=== PATIENT | female | born 1980 | race African-American/Black ===

== ENCOUNTER 2021-12-05 10:38 | Outpatient (REF) | payer MEDICAID, SELFPAY ==
--- NOTE | ~2021-12-05 | US_ITS ---
EXAMINATION: US PELVIS CLINICAL INFORMATION: Dysmenorrhea COMPARISON: None TECHNIQUE: Ultrasound of the pelvis is performed using both transabdominal and transvaginal transducers along with Doppler. Transvaginal imaging is performed due to inadequate visualization transabdominally. FINDINGS: The uterus is anteverted and measures 9 x 4 x 5.7 cm in dimension. There is a 1.3 x 1 x 1.4 cm hypoechoic lesion in the anterior uterine body suggestive of a fibroid. No other focal uterine lesion is seen. Endometrial thickness measures 1 cm. There is a 0.6 x 0.8 x 0.9 cm hyperechoic round area in the anterior endometrium questionable for a polyp. There are multiple nabothian cysts seen in the cervix. Some appear complex with internal echoes. There is a small amount of fluid in the endocervical canal. The right ovary is normal-appearing and measures 2.8 x 1.2 x 1.1 cm. The left ovary measures 3.4 x 2.6 x 2.9 cm. There is a 2.2 x 2.3 x 2.3 cm simple left ovarian cyst. No imaging follow-up is indicated. There is a small amount of fluid in the pelvis. US/US pelvic and transvaginal IMPRESSION: Small anterior uterine body fibroid. 8 x 9 mm echogenic area in the anterior endometrium questionable for a polyp. Multiple nabothian cysts in the cervix. 2.2 x 2.3 cm simple left ovarian cyst.
== END 2021-12-05 10:39 | disposition home or self-care (01) ==
LOC: HO.HMGCX 10:38
PROVIDERS: Visit Provider Internal Medicine
DX: N93.8 Other specified abnormal uterine and vaginal bleeding (principal); N94.6 Dysmenorrhea, unspecified
CPT/HCPCS: 76830; 76856

== ENCOUNTER 2023-06-20 13:26 | Outpatient (REF) | payer MEDICAID, SELFPAY ==
[2023-06-21 15:43] LABS: H Pylori Breath Test Negative (Negative)
== END 2023-06-20 13:27 | disposition home or self-care (01) ==
LOC: HO.HHCLNP 13:26
PROVIDERS: Visit Provider Internal Medicine Geriatric Medicine
DX: K21.9 Gastro-esophageal reflux disease without esophagitis (principal)
CPT/HCPCS: 83013

== ENCOUNTER 2023-10-22 11:55 | Outpatient (REF) | payer MEDICAID, SELFPAY ==
[2023-10-22 13:55] LABS: Anion Gap 12 (12-20); Blood Urea Nitrogen 16 mg/dL (9-16); Calcium 8.9 mg/dL (8.4-10.2); Carbon Dioxide 24 mmol/L (22-29); Chloride 106 mmol/L (96-108); Estimated Glomerular Filt Rate > 60; Glucose Random 75 mg/dL (60-115); Potassium 4.1 mmol/L (3.3-5.1); Sodium 138 mmol/L (135-145)
[2023-10-22 14:16] LABS: TSH reflex Free T4 2.43 uIU/mL (0.32-4.0)
== END 2023-10-22 11:56 | disposition home or self-care (01) ==
LOC: HO.HHCL 11:55
PROVIDERS: Visit Provider Internal Medicine Geriatric Medicine
DX: R63.5 Abnormal weight gain (principal)
CPT/HCPCS: 36415; 80048; 84443

== ENCOUNTER 2024-12-10 09:43 | Outpatient (REF) | payer MEDICAID, SELFPAY ==
[2024-12-10 11:28] LABS: MANUAL DIFF FLAG NO
[2024-12-10 11:41] LABS: Basophils Percent Auto 0.5 % (0-2); Eosinophils Absolute Auto 0.1 X10*3/uL (0.0-0.4); Eosinophils Percent Auto 1.7 % (0-4); Hematocrit 37.3 % (37.0-47.0); Hemoglobin 11.9 g/dl (12.0-16.0); Imm Gran Abs Auto 0.03 X10*3/uL (0.00-0.03); Imm Gran Pct Auto 0.5 % (0.0-0.4); Lymphocytes Absolute Auto 1.5 X10*3/uL (1.2-4.9); Lymphocytes Percent Auto 25.7 % (20-40); Mean Corpuscular HGB Conc 31.9 g/dl (31.0-35.0); Mean Corpuscular Hemoglobin 26.8 pg (27.0-33.0); Mean Platelet Volume 10.5 fL (9.4-12.3); Monocytes Absolute Auto 0.4 X10*3/uL (0.1-1.2); Monocytes Percent Auto 7.1 % (2-11); Neutrophils Absolute Auto 3.7 x10*3/uL (2.0-8.3); Neutrophils Percent Auto 64.5 % (45-73); Platelet Count 225 X10*3/uL (160-400); Red Blood Count 4.44 X10*6/uL (4.20-5.50); White Blood Count 5.8 X10*3/uL (4.8-10.8)
[2024-12-10 11:49] LABS: Estimated Average Glucose 108 mg/dL; Hemoglobin A1C 109.7046 umol/L; Hemoglobin A1c % 5.4 % (<6.0); Total Hemoglobin (HGBA1C) 3125.8357 umol/L
[2024-12-10 12:16] LABS: Alanine Aminotransferase 91 U/L (0-31); Albumin Level 3.8 g/dL (3.5-5.0); Alkaline Phosphatase 141 U/L (39-117); Anion Gap 12 (12-20); Aspartate Amino Transferase 88 U/L (5-31); Bilirubin Total 0.3 mg/dL (0.0-1.0); Blood Urea Nitrogen 14 mg/dL (9-16); Carbon Dioxide 24 mmol/L (22-29); Chloride 107 mmol/L (96-108); Cholesterol 186 mg/dL (<200); Estimated Glomerular Filt Rate > 60; Glucose Random 89 mg/dL (60-115); HDL Cholesterol 50 mg/dL (>40); LDL Cholesterol Calculated 99 mg/dL (<100); Potassium 3.8 mmol/L (3.3-5.1); Sodium 139 mmol/L (135-145); TSH reflex Free T4 4.56 uIU/mL (0.32-4.0); Total Protein 7.5 g/dL (6.5-8.0); Triglycerides 185 mg/dL (<150)
[2024-12-10 12:48] LABS: Free T4 (Free Thyroxine) 0.88 ng/dL (0.71-1.85)
== END 2024-12-10 09:44 | disposition home or self-care (01) ==
LOC: HO.HHCL 09:43
PROVIDERS: Visit Provider Internal Medicine Geriatric Medicine
DX: E03.9 Hypothyroidism, unspecified (principal); R63.5 Abnormal weight gain
CPT/HCPCS: 36415; 80053; 80061; 83036; 84439; 84443; 85025

== ENCOUNTER 2025-01-28 10:57 | Outpatient (REF) | payer OTHER, SELFPAY ==
--- OUTSIDE RECORDS SUMMARY | 2025-01-28 12:30 | XMS_ITS | Clinical Summary ---
Author Organization [employer] Address [address] [place] [address] 7[address] [place] [address] Care Team Providers Care Hand Lacer Name Role Phone Name, Chang ORTEGA Primary Care Provider [phone] Allergies No known active allergies Medications ferrous sulfate 325 (65 Fe) MG tablet TAKE 1 TABLET BY MOUTH EVERY OTHER DAY 45 tablet 3 Active Diclofenac Sodium 1 % gelIndications:Medi al epicondylitis of right elbow Apply once a day to the affected elbow 100 g 2 4 Active levothyroxine (Synthroid, Levoxyl) 25 MCG tabletIndications:H ypothyroidism, unspecified type TAKE 1 TABLET BY MOUTH EVERY DAY 90 tablet 3 5 Active omeprazole (PriLOSEC) [address] capsule TAKE 1 CAPSULE BY MOUTH BEFORE BREAKFAST. 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 2 mL 5 02/27/20 Active Active Problems Problem Noted Date Diagnosed Date Iron deficiency anemia due to chronic blood loss 03/25/2023 S/P endometrial ablation 03/22/2023 Dry skin 10/03/2017 Prehypertension 10/03/2017 Seasonal allergic rhinitis 10/03/2017 Hypothyroidism 07/31/2017 Encounters Date Type Department Care Team Description 01/27/2025 Orders Only [facility] [address] [place] [address] NameChang MD Transaminitis (Primary Dx); Metabolic dysfunction-associated steatohepatitis (MASH); 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 mass index (BMI) of 38.0 to 38.9 in adult 12/24/[address] [address] Prosper Guaman [place] march recalls 12/10/2024 9:00 AM EDT Office Visit [address] [address] Name, MD Chang 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 mass index (BMI) of 38.0 to 38.9 in adult (Primary Dx); Hypothyroidism, unspecified type; Chronic pain of both knees; History of anemia 12/10/2024 Orders Only [address] [address] NameChang MD 12/10/2024 Travel from Last 3 Months Immunizations Name Administration Dates Next Due Moderna Covid-19 Vaccine 12+ 02/06/2021,01/10/20 21 Tdap 10/03/2017 Social History Tobacco Use Types Packs/Day Years Used Date Smoking Tobacco: Never Smokeless Tobacco: Never Tobacco Cessation:Counseling Given: Not Answered Alcohol Use Standard Drinks/Week Comments Never 0 (1 standard drink = 0.6 oz pur e alcohol) Depression Answer Date Recorded Patient Health Questionnaire-9 Score 3 12/10/2024 Patient Health Questionnaire-9 Score 3 12/10/2024 Last PHQ-9: Questionnaire Data Not on file 0 12/10/2024 Housing Stability Answer Date Recorded What is your housing situation today? I have jennifer lázaro 12/10/[address] you li ve. Do you have problems with any of the following? None of the above 12/10/2024 Food Insecurity Answer Date Recorded Within the past 12 months, y ou worried that your food would run out before you got money to buy more: Never True 12/10/2024 Within the past 12 months,th e food you bought just didn't last and you didn't have enough money to get more: Never True Transportation Answer Date Recorded In the past 12 months, has l ack of transportation kept you from medical appts, meetings, work or from getting things needed for daily living? No 12/10/2024 Utilities Answer Date Recorded In the past 12 months, has t he electric, gas, oil or water company threatened to shut off services in your home? No 12/10/2024 Depression Answer Date Recorded Patient Health Questionnaire-2 Score 0 12/10/2024 Internet Access Answer Date Recorded Internet Access Q1 Yes 12/10/2024 Internet Access Q2 Not on file 12/10/2024 Comments Unknown Sex and Gender Information Value Date Recorded Sex Assigned at Female 07/23/2022 10:32 AM EDT Legal Sex Female 10:32 AM EDT Gender Identity Female 07/23/2022 10:32 AM EDT Sexual Orientation Choose not to disclose 2021 10:32 AM EDT Last Filed Vital Signs Vital Sign Reading Time Taken Comments Blood Pressure 137/79 12/10/2024 9:24 AM EDT Pulse 76 12/10/2024 9:24 AM EDT Temperature 36.7 ??C (98 ??F) 12/10/2024 9:24 AM EDT Respiratory Rate 19 12/10/2024 9:24 AM EDT Oxygen Saturation 98% 12/10/2024 9:24 AM EDT Inhaled Oxygen Concentration - - Weight 85.8 kg (189 lb 3.2 oz) 12/10/2024 9:24 A M EDT Height 149.9 cm (4' 11 ) 12/10/2024 9:24 AM EDT Body Mass Index 38.21 12/10/2024 9:24 AM EDT Plan of Treatment Upcoming Encounters Date Type Department Care Team (Late st Contact Info) Description 04/13/2025 11:00 AM EDT Office Visit [facility] [address] [place] [phone] Name, MD Chang [address] [place] [address] Health Maintenance Due Date Last Done Comments CT Colonography 1978 Colonoscopy 1978 Colorectal Cancer Screening 1978 FIT DNA/Cologuard 1978 FIT 1978 FOBT 1978 HIV Screening 1978 Sigmoidoscopy 1978 Alcohol/Substance Use Screening 1990 Family Planning (PISQ) 1993 Hepatitis C Screening 1996 Hepatitis A Vaccines (1 of 2 - Risk 2-dose series) 1997 Hepatitis B Vaccines (1 of 3 - 19+ 3-dose series) 1997 Pap Smear 1999 Mammogram 2018 Cervical Cancer Screening 09/25/2022 HPV/Cotest 09/25/2022 09/25/2017 COVID-19 Vaccine (3 - 2023-2 5 season) 2024 02/06/2021, 01/09/2021 Influenza Vaccine (#1) 2024 Depression Screening 12/10/2025 12/10/2024, 12/10/2024 SDOH Screening 12/10/2025 12/10/2024 Tobacco Screening 12/10/2025 12/10/2024 DTaP/Tdap/Td Vaccines (2 - T d or Tdap) 10/03/2027 10/03/2017 Zoster Vaccines (1 of 2) 2028 Lipid Panel 12/10/2029 12/10/2024, 06/26/2022 RSV Patients and Patients Aged 60 years or older (1 - 1-dose 75+ series) 2053 HIB Vaccines Aged Out No longer eligi ble based on patient's age to complete this topic HPV Vaccines Aged Out No longer eligi ble based on patient's age to complete this topic IPV Vaccines Aged Out No longer eligi ble based on patient's age to complete this topic Meningococcal Vaccine Aged Out No jamie inna eligible based on patient's age to complete this topic Pneumococcal Vaccine: Pediatrics (0 to 5 Years) and At-Risk Patients (6 to 49) Years) Aged Out No longer eligible b ased on patient's age to complete this topic RSV under 20 months Aged Out No longe r eligible based on patient's age to complete this topic Rotavirus Vaccines Aged Out No longer eligible based on patient's age to complete this topic Procedures Procedure Name Priority Date/Time Associated Diagnosis Comments T4, FREE Routine 12/10/2024 9:50 AM EDT HEMOGLOBIN A1C Routine 12/10/2024 9:50 AM EDT 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 mass index (BMI) of 38.0 to 38.9 in adult LIPID PANEL, STANDARD Routine 12/10/2024 9:50 AM EDT 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 mass index (BMI) of 38.0 to 38.9 in adult TSH W/REFLEX TO FT4 Routine 12/10/2024 9 :50 AM EDT Hypothyroidism, unspecified type COMPREHENSIVE METABOLIC PANEL Routine 12/10/2024 9:50 AM EDT 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 mass index (BMI) of 38.0 to 38.9 in adult CBC WITH AUTO DIFFERENTIAL Routine 12/10/2024 9:50 AM EDT 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 mass index (BMI) of 38.0 to 38.9 in adult ZZZ HISTORICAL HPV MRNA E6/E7 Routine 09/25/2017 10:06 AM EST from Last 3 Months or Most Recently Relevant to Health Maintenance Results * (ABNORMAL) TSH W/Reflex to FT4 (12/10/2024 9:50 AM EDT) TSH reflex Free T4 4.56(H) 0.32 - 4.0 uIU/mL [facility] Blood Venous blood specimen / Unknown 12/10/2024 9:50 AM EDT 12/10/2024 11:21 AM EDT us Chang Lucero MD LAB BLOOD ORDERABLES Final Resul t [facility] [address] [place] [phone] * (ABNORMAL) CBC auto differential (12/10/2024 9:50 AM EDT) White Blood Count 5.8 4.8 - 10.8 X10*3/uL [facility] Red Blood Count 4.44 4.20 - 5.50 X10*6/uL [facility] Hemoglobin 11.9(L) 12.0 - 16.0 g/dl [facility] Hematocrit 37.3 37.0 - 47.0 % [facility] Mean Corpuscular Volume 84.0 80.0 - 98.0 fL [facility] Mean Corpuscular Hemoglobin 26.8(L) 27.0 - 33.0 pg [facility] Mean Corpuscular HGB Conc 31.9 31.0 - 35.0 g/dl [facility] Red Cell Distribution Width 15.0 11.0 - 16.0 % [facility] Platelet Count 225 160 - 400 X10*3/uL [facility] Mean Platelet Volume 10.5 9.4 - 12.3 fL [facility] Neutrophils Percent Auto 64.5 45 - 73 % [facility] Imm Gran Pct Auto 0.5(H) 0.0 - 0.4 % [facility] Lymphocytes Percent Auto 25.7 20 - 40 % [facility] Monocytes Percent Auto 7.1 2 - 11 % [facility] Eosinophils Percent Auto 1.7 0 - 4 % [facility] Basophils Percent Auto 0.5 0 - 2 % [facility] NRBC Pct Auto 0.0 0.0 - 0.2 /100WBC [facility] Neutrophils Absolute Auto 3.7 2.0 - 8.3 x10*3/uL [facility] Imm Gran Abs Auto 0.03 0.00 - 0.03 X10*3/uL [facility] Lymphocytes Absolute Auto 1.5 1.2 - 4.9 X10*3/uL [facility] Monocytes Absolute Auto 0.4 0.1 - 1.2 X10*3/uL [facility] Eosinophils Absolute Auto 0.1 0.0 - 0.4 X10*3/uL [facility] Basophils Absolute Auto 0.0 0.0 - 0.2 X10*3/uL [facility] NRBC Abs Auto 0.000 0.0 - 0.012 X10*3/uL [facility] Blood Venous blood specimen / Unknown 12/10/2024 9:50 AM EDT 12/10/2024 11:21 AM EDT us Chang Lucero MD LAB BLOOD ORDERABLES Final Resul t Performing Organization Address City/[facility] Co de Phone Number [facility] [address] [place] [phone] * T4, Free (12/10/2024 9:50 AM EDT) Free T4 (Free Thyroxine) 0.88 0.71 - 1.85 ng/dL [facility] 12/10/2024 9:50 AM EDT 12/10/2024 11:21 AM EDT us Chang Lucero MD LAB BLOOD ORDERABLES Final Resul t Performing Organization Address [facility] de Phone Number [facility] [address] [place] [phone] * Hemoglobin A1c (12/10/2024 9:50 AM EDT) Hemoglobin A1c 5.4 <6.0 % [facility] Comment:Hemoglobin A1C Refer ence Range Adults: 4.8 - 6.0 % Non diabetic: < 6.0 % Goal: < 7.0 %Additional Action Suggested: > 8.0 %Note: Hemoglobin A1c results are invalid for patients with abnormal amounts of HbF. Blood transfusions may impact the HbA1c concentration in the patient sample. Estimated Average Glucose 108 mg/dL [facility] Comment:eAG = Estimated ave rage glucose which is %A1C expressed asaverage glucose, using the formula of the [id number] Glucose study (ADAG), Diabetes Care, Vol.31,#8,2007 Blood Venous blood specimen / Unknown 12/10/2024 9:50 AM EDT 12/10/2024 11:21 AM EDT us Chang Lucero MD LAB BLOOD ORDERABLES Final Resul t Performing Organization Address [facility] Co de Phone Number [facility] [address] [place] [phone] * (ABNORMAL) Lipid Panel, Standard (12/10/2024 9:50 AM EDT) Triglycerides 185(H) <150 mg/dL [facility] Comment:Desirable Triglyceri de: less than 150 mg/dLBorderline High Triglyceride 150-199 mg/dLHigh Triglyceride: 200-499 mg/dLVery High Triglyceride: greater than or equal to 5OO mg/dL Cholesterol 186 <200 mg/dL [facility] Comment:Desirable Cholestero l: less than 200 mg/dLBorderline High Cholesterol: 200-239 mg/dLHigh Cholesterol: greater than 239 mg/dL LDL Cholesterol Calculated 99 <100 mg/dL [facility] Comment:Desirable LDL: less than 100 mg/dLNear Optimal/Above Optimal LDL: 110- 129 mg/dLBorderline High LDL: 130-159 mg/dLHigh LDL: 160-189 mg/dLVery High LDL: greater than or equal to 190 mg/dL HDL Cholesterol 50 >40 mg/dL [facility] Comment:Desirable HDL: great er than 40 mg/dL Note: This HDL assay may give artificially low results in patients with liver disease. Blood Venous blood specimen / Unknown 12/10/2024 9:50 AM EDT 12/10/2024 11:21 AM EDT us Chang Lucero MD LAB BLOOD ORDERABLES Final Resul t Performing Organization Address [facility]/ZIP Co de Phone Number [facility] [address] [place] [phone] * (ABNORMAL) Comprehensive Metabolic Panel (12/10/2024 9:50 AM EDT) Sodium 139 135 - 145 mmol/L [facility] Potassium 3.8 3.3 - 5.1 mmol/L [facility] Chloride 107 96 - 108 mmol/L [facility] Carbon Dioxide 24 22 - 29 mmol/L [facility] Anion Gap 12 12 - 20 [facility] Urea Nitrogen (BUN) 14 9 - 16 mg/dL [facility] Creatinine, Serum 0.64 0.5 - 1.4 mg/dL [facility] Estimated Glomerular Filt Rate >60 [facility] Comment:Chronic Kidney Disea se: Estimated GFR < 60 mL/min/1.44f0Hrtoam Kidney Disease: Estimated GFR < 15 mL/min/1.73m2 Glucose 89 60 - 115 mg/dL [facility] Calcium 9.0 8.4 - 10.2 mg/dL [facility] Bilirubin, Total 0.3 0.0 - 1.0 mg/dL [facility] Aspartate Amino Transferase 88(H) 5 - 31 U/L [facility] Alanine Aminotransferase 91(H) 0 - 31 U/L [facility] Total Protein 7.5 6.5 - 8.0 g/dL [facility] Albumin Level 3.8 3.5 - 5.0 g/dL [facility] Alkaline Phosphatase 141(H) 39 - 117 U/L [facility] Blood Venous blood specimen / Unknown 12/10/2024 9:50 AM EDT 12/10/2024 11:21 AM EDT us Chang Name LAB BLOOD ORDERABLES Final Resul t [facility] [address] [place] [phone] * HPV mRNA E6/E7 (09/25/2017 10:06 AM EST) HPV mRNA E6/E7 Not Detected NOT DETECTED [facility] Comment: This test was performed using the APTIMA(R) HPV Assay ([employer] This assay detects E6/E7 viral messenger RNA (mRNA) from 14 high-risk HPV types (16,18,31,33,35,39,45,51, 52,56,58,59,66,68). For additional information please refer to: http://education.[employer] [place]/faq/SHK494c2 (This link is being provided for informational/ educational purposes only.) Test Performed by [employer] [facility], [address] [place] [phone] Papo Coburn M.D., Ph.D., Director of Laboratories , [facility] [id number] Please note: ??Effective 06/04/2016, HPV testing will be performed using [employer]'s APTIMA test which targets mRNA. Detecting mRNA instead of DNA, as in older methods, offers significant improvements in specificity. 09/25/2017 10:0 6 AM EST us Nadia Cordon CNM HISTORICAL/NON ORDERABLE LABS Final Result [facility] Anywhere [address] from Last 3 Months or Most Recently Relevant to Health Maintenance Insurance [facility] Care Teams Hand Lacer Relationship Specialty Start Date End Date Name, MD Chang [address] [place] [phone] PCP - General Internal Medicine 01/10/23
--- OUTSIDE RECORDS SUMMARY | 2025-01-28 12:30 | XMS_ITS | Encounter Summary ---
Author Organization [employer] Address [address] [place] [address] 7 [place] [address] Care Team Providers Care Sales Correspondence Clerk Name Role Phone Chang Lucero MD Primary Care Provider [phone] Reason for Referral * Medications - Closed Specialty Diagnoses / Procedures Referred By Citlaly t Referred To Contact Diagnoses Metabolic dysfunction-associated steatohepatitis (MASH) 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 mass index (BMI) of 38.0 to 38.9 in adult Chang Lucero MD [address] [place] [address] Phone: tel: fax: Referral ID Status Reason Start Date Expiration Date Visits Re quested Visits Authorized [id number] Closed 01/27/2025 01/27/2026 1 1 * Imaging (Routine) - Authorized Specialty Diagnoses / Procedures Referred By Contac t Referred To Contact Radiology Diagnoses Transaminitis Metabolic dysfunction-associated steatohepatitis (MASH) Procedures US ABDOMEN VAUGHN W ELASTOGRAPHY Chang Lucero MD [address] [place] [address] Phone: tel: fax: [address] Phone: tel: fax: Referral ID Status Reason Start Date Expiration Date V isits Requested Visits Authorized [id number] Authorized 01/27/2025 01/27/2026 1 1 Encounter Details Date Type Department Care Team (Late st Contact Info) Description 01/27/2025 Orders Only [facility] [address] [facility] [place] [address] Name, MD Chang [address] [place] [address] Transaminitis (Primary Dx); Metabolic dysfunction-associated steatohepatitis (MASH); 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 mass index (BMI) of 38.0 to 38.9 in adult Social History Tobacco Use Types Packs/Day Years Used Date Smoking Tobacco: Never Smokeless Tobacco: Never Alcohol Use Standard Drinks/Week Comments Never 0 (1 standard drink = 0.6 oz pur e alcohol) Depression Answer Date Recorded Patient Health Questionnaire-9 Score 3 12/10/2024 Patient Health Questionnaire-9 Score 3 12/10/2024 Last PHQ-9: Questionnaire Data Not on file 0 12/10/2024 Housing Stability Answer Date Recorded What is your housing situation today? I have jennifer sesay 12/10/[address] you li [...] not to disclose 2021 10:32 AM EDT documented as of this encounter Progress Notes * Chang Lucero MD - 01/27/2025 9:34 AM EDT I called the patient to discuss the results. She has mild transaminitis She is not a big drinker of alcohol. I suspect metabolic associated steatohepatitis. I recommended evaluation with viral hepatitis testing Ultrasound of the liver I will prescribe GLP-1 for weight loss and start the process of prior authorization documented in this encounter Plan of Treatment Upcoming Encounters Date Type Department Care Team (Late st Contact Info) Description 04/13/2025 11:00 AM EDT Office Visit [facility] [address] [place] [phone] Name, MD Chang [address] [place] [address] Scheduled Orders Name Type Priority Associated Diagnoses Orde r Schedule Hepatitis C Antibody with Reflex to HCV, RNA, Quantitative, Real-Time PCR Lab Routine Transaminitis Metabolic dysfunction-associated steatohepatitis (MASH) Expected: 01/27/2025, Expires: 01/27/2026 Hepatitis B surface antigen, EIA Lab Routine Transaminitis Metabolic dysfunction-associated steatohepatitis (MASH) Expected: 01/27/2025 (Approximate), Expires: 01/27/2026 Hepatitis B Surface Antibody, Qualitative Lab Routine Transaminitis Metabolic dysfunction-associated steatohepatitis (MASH) Expected: 01/27/2025 (Approximate), Expires: 01/27/2026 US ABDOMEN VAUGHN W ELASTOGRAPHY Imaging Routine Transaminitis Metabolic dysfunction-associated steatohepatitis (MASH) Expected: 01/27/2025, Expires: 01/27/2026 documented as of this encounter Visit Diagnoses Diagnosis Transaminitis- Primary Nonspecific elevation of levels of transaminase or lactic acid dehydrogenase (LDH) Metabolic dysfunction-associated steatohepatitis (MASH) 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 mass index (BMI) of 38.0 to 38.9 in adult documented in this encounter Additional Health Concerns Assessment Noted Time PHQ-9 Depression Total Score: 3 12/11/19 25 9:49 AM EDT documented as of this encounter Care Teams Sales Correspondence Clerk Relationship Specialty Start Date End Date Name, MD Chang [address] [place] [address] PCP - General Internal Medicine 01/10/23 documented as of this encounter
[2025-01-28 13:54] LABS: HBS Num1 0.14 mIU/mL (0-7.99); HBsAGNum1 0.34 S/CO (0.00-0.99); Hepatitis B Surface Antigen Negative (Negative); ~Hepatitis B Surface Antibody NONREACTIVE (Nonreactive); ~Hepatitis C Antibody Nonreactive (Nonreactive)
== END 2025-01-28 10:58 | disposition home or self-care (01) ==
LOC: HO.HHCL 10:57
PROVIDERS: Visit Provider Internal Medicine Geriatric Medicine
DX: K75.81 Nonalcoholic steatohepatitis (NASH) (principal); R74.01 Elevation of levels of liver transaminase levels
CPT/HCPCS: 36415; 86706; 86803; 87340

== ENCOUNTER 2025-03-10 10:08 | Outpatient (REF) | payer OTHER, SELFPAY ==
--- NOTE | ~2025-03-10 | US_ITS ---
EXAMINATION: US ABDOMEN LIMITED WITH LIVER ELASTOGRAPHY CLINICAL INFORMATION: Transaminitis, obesity COMPARISON: None available. TECHNIQUE: Real-time imaging of the abdominal viscera. Noninvasive ultrasound liver fibrosis assessment is performed using Long ElastPQ point quantification shear wave elastography (pSWE) with a 5 MHz transducer. Multiple elastography samples are obtained. FINDINGS: PANCREAS: The visualized pancreatic head and body are normal in appearance. The remainder of the pancreas is obscured from visualization by the overlying bowel gas. LIVER: The liver is hyperechogenic with a coarse echotexture. No intrahepatic biliary ductal dilation is evident. The right lobe measures 18 cm in length. The left lobe measures 12 cm in length. The main portal vein is patent with a normal direction of flow. Shear wave elastography provides a median stiffness of 0.9 m/s (reference: normal median stiffness is 0.81 - 1.22 m/s). The IQR/median stiffness to assess sampling precision is 0.28 (reference: optimal IQR/median stiffness is under 0.3). GALLBLADDER: Surgically absent COMMON BILE DUCT: Normal in caliber measuring 0.5 cm in diameter. RIGHT KIDNEY: No hydronephrosis. No renal calculi or focal parenchymal lesions. The kidney measures 10.1 cm in maximum dimension. FREE FLUID: None seen. US/US abdomen priest w elastography IMPRESSION: 1. Echogenic liver suggestive fatty changes.: 2. Elastography: High probability of normal. Sampling was adequate. Electronically signed by: Sathish Francis MD 03/10/2025 11:06 AM EDT
--- OUTSIDE RECORDS SUMMARY | 2025-03-10 11:23 | XMS_ITS | Clinical Summary ---
Author Organization [employer] Address [address] [place] [address] 7 [place] [address] Care Team Providers Care Bight Maker Name Role Phone Name, Chang ORTEGA Primary Care Provider [phone] Allergies No known active allergies Medications ferrous [...] (one) time per week. 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 I have jenniferrambo sesay 12/10/[address] you [...] 76 12/10/2024 9:24 AM EDT Temperature 36.7 C (98 F) 12/10/2024 9:24 AM EDT Respiratory Rate 19 [...] Description 04/13/2025 11:00 AM EDT Office Visit [facility] [address] [place] [address] Name, MD Chang [address] [place] [address] Health Maintenance Due Date Last Done Comments CT Colonography 1978 Colonoscopy 1978 Colorectal Cancer Screening 1978 FIT DNA/Cologuard 1978 FIT 1978 FOBT 1978 HIV Screening 1978 Sigmoidoscopy 1978 Alcohol/Substance Use Screening 1990 Family Planning (PISQ) 1993 Hepatitis A Vaccines (1 of 2 - Risk 2-dose series) 1997 Hepatitis B Vaccines (1 of 3 - 19+ 3-dose series) 1997 Pap Smear 1999 Mammogram 2018 Cervical Cancer Screening 09/25/2022 HPV/Cotest 09/25/2022 09/25/2017 COVID-19 Vaccine (3 - 2023-2 5 season) 2024 02/06/2021, 01/09/2021 Influenza Vaccine (Season Ended) 2025 Depression Screening 12/10/2025 12/10/2024, 12/10/2024 Disability Screening 12/10/2025 12/10/2024 SDOH Screening 12/10/2025 12/10/2024 Tobacco Screening 12/10/2025 12/10/2024 DTaP/Tdap/Td Vaccines (2 - T d or Tdap) 10/03/2027 10/03/2017 Zoster Vaccines (1 of 2) 2028 Lipid Panel 12/10/2029 12/10/2024, 06/26/2022 RSV Patients and Patients Aged 60 years or older (1 - 1-dose 75+ series) 2053 Hepatitis C Screening Completed 01/28/2025 HIB Vaccines Aged Out No longer eligi ble based on patient's age to complete this topic HPV Vaccines Aged Out No longer eligi ble based on patient's age to complete this topic IPV Vaccines Aged Out No longer eligi ble based on patient's age to complete this topic Meningococcal B Vaccine Aged Out No l onger eligible based on patient's age to complete this topic Meningococcal Vaccine Aged Out No jamie inna eligible based on patient's age to complete this topic Pneumococcal Vaccine: Pediatrics (0 to 5 Years) and At-Risk Patients (6 to 49) Years Aged Out No longer eligible b ased on patient's age to complete this topic RSV under 20 months Aged Out No longe r eligible based on patient's age to complete this topic Rotavirus Vaccines Aged Out No longer eligible based on patient's age to complete this topic Procedures Procedure Name Priority Date/Time Associated Diagnosis Comments US ABDOMEN VAUGHN W ELASTOGRAPHY Routine 03/10/2025 10:17 AM EDT Transaminitis Metabolic dysfunction-associated steatohepatitis (MASH) HEPATITIS B SURFACE ANTIBODY, QUALITATIVE Routine 01/28/2025 10:59 AM EDT Transaminitis Metabolic dysfunction-associated steatohepatitis (MASH) HEPATITIS B SURFACE ANTIGEN, EIA Routine 01/28/2025 10:59 AM EDT Transaminitis Metabolic dysfunction-associated steatohepatitis (MASH) HEPATITIS C AB W/REFL TO HCV RNA, QN, PCR Routine 01/28/2025 10:59 AM EDT Transaminitis Metabolic dysfunction-associated steatohepatitis (MASH) T4, FREE Routine 12/10/2024 9:50 AM EDT [...] Recently Relevant to Health Maintenance Results * US ABDOMEN VAUGHN W ELASTOGRAPHY (03/10/2025 10:17 AM EDT) Anatomical Region Laterality Modality Abdomen Ultrasound 03/10/2025 10:1 7 AM EDT Narrative 03/10/2025 11:09 AM EDT [place] [address] Ultrasound Report Signed Patient: Karthik Ray#: [id number] : 1980 Acct:[id number] Age/Sex: 44 / F ADM Date: 03/10/25 Loc: HO.US Attending Dr: Chang Lucero MD Ordering Physician: Chang Lucero MD Date of Service: 03/10/25 Procedure(s): US abdomen vaughn w elastography Accession Number(s): [id number] cc: Chang Lucero MD; Macy Weston MD EXAMINATION: US ABDOMEN LIMITED WITH LIVER ELASTOGRAPHY CLINICAL INFORMATION: Transaminitis, obesity COMPARISON: None available. TECHNIQUE: Real-time imaging of the abdominal viscera. Noninvasive ultrasound liver fibrosis assessment is performed using Long ElastPQ point quantification shear wave elastography (pSWE) with a 5 MHz transducer. Multiple elastography samples are obtained. FINDINGS: PANCREAS: The visualized pancreatic head and body are normal in appearance. The remainder of the pancreas is obscured from visualization by the overlying bowel gas. LIVER: The liver is hyperechogenic with a coarse echotexture. No intrahepatic biliary ductal dilation is evident. The right lobe measures 18 cm in length. The left lobe measures 12 cm in length. The main portal vein is patent with a normal direction of flow. Shear wave elastography provides a median stiffness of 0.9 m/s (reference: normal median stiffness is 0.81 - 1.22 m/s). The IQR/median stiffness to assess sampling precision is 0.28 (reference: optimal IQR/median stiffness is under 0.3). GALLBLADDER: Surgically absent COMMON BILE DUCT: Normal in caliber measuring 0.5 cm in diameter. RIGHT KIDNEY: No hydronephrosis. No renal calculi or focal parenchymal lesions. The kidney measures 10.1 cm in maximum dimension. FREE FLUID: None seen. US/US abdomen vaughn w elastography IMPRESSION: 1. Echogenic liver suggestive fatty changes.: 2. Elastography: High probability of normal. Sampling was adequate. Electronically signed by: Sathish Francis MD 03/10/2025 11:06 AM EDT RP Dictated By: Sathish Francis MD Signed By: <Electronically signed by Sathish Francis MD in OV> 03/10/25 1106 DD/ 1017 TD/TT: 03/10/25 1038 Boat Canvas Maker And Installer: Procedure Note Donotuseinterpreter, Image - 03/10/[address] [address] Ultrasound Report Signed Patient: Arti Ray R#: [id number] : 1980Acct:[id number] Age/Sex: 44 / FADM Date: 03/10/25 Loc: HO.US Attending Dr: Chang Lucero MD Ordering Physician: Chang Lucero MD Date of Service: 03/10/25 Procedure(s): US abdomen vaughn w elastography Accession Number(s): [id number] cc: Chang Lucero MD; Macy Weston MD EXAMINATION: US ABDOMEN LIMITED WITH LIVER ELASTOGRAPHY CLINICAL INFORMATION: Transaminitis, obesity COMPARISON: None available. TECHNIQUE: Real-time imaging of the abdominal viscera. Noninvasive ultrasound liver fibrosis assessment is performed using Long ElastPQ point quantification shear wave elastography (pSWE) with a 5 MHz transducer. Multiple elastography samples are obtained. FINDINGS: PANCREAS: The visualized pancreatic head and body are normal in appearance. The remainder of the pancreas is obscured from visualization by the overlying bowel gas. LIVER: The liver is hyperechogenic with a coarse echotexture. No intrahepatic biliary ductal dilation is evident. The right lobe measures 18 cm in length. The left lobe measures 12 cm in length. The main portal vein is patent with a normal direction of flow. Shear wave elastography provides a median stiffness of 0.9 m/s (reference: normal median stiffness is 0.81 - 1.22 m/s). The IQR/median stiffness to assess sampling precision is 0.28 (reference: optimal IQR/median stiffness is under 0.3). GALLBLADDER: Surgically absent COMMON BILE DUCT: Normal in caliber measuring 0.5 cm in diameter. RIGHT KIDNEY: No hydronephrosis. No renal calculi or focal parenchymal lesions. The kidney measures 10.1 cm in maximum dimension. FREE FLUID: None seen. US/US abdomen vaughn w elastography IMPRESSION: 1. Echogenic liver suggestive fatty changes.: 2. Elastography: High probability of normal. Sampling was adequate. Electronically signed by: Sathish Francis MD 03/10/2025 11:06 AM EDT RP Dictated By: Sathish Francis MD Signed By: <Electronically signed by Sathish Francis MD in OV> 03/10/25 1106 DD/ 1017 TD/TT: 03/10/25 1038 Boat Canvas Maker And Installer: us Chang Lucero MD IMG US PROCEDURES Edited Result - Final * Hepatitis C Antibody with Reflex to HCV, RNA, Quantitative, Real-Time PCR (01/28/2025 10:59 AM EDT) Hepatitis C Antibody Nonreactive Nonreactive [facility] Comment:Antibodies to HCV no t detected; does not exclude early acuteHCV infection. Blood Venous blood specimen / Unknown 01/28/2025 10:59 AM EDT 01/28/2025 12:58 PM EDT us Chang Lucero MD LAB BLOOD ORDERABLES Final Resul t [facility] [address] [place] [phone] * Hepatitis B surface antigen, EIA (01/28/2025 10:59 AM EDT) Hepatitis B Surface Ag Negative Negative [facility] Blood Venous blood specimen / Unknown 01/28/2025 10:59 AM EDT 01/28/2025 12:58 PM EDT us Chang Lucero MD LAB BLOOD ORDERABLES Final Resul t Performing Organization Address [facility] de Phone Number [facility] [address] [place] [phone] * Hepatitis B Surface Antibody, Qualitative (01/28/2025 10:59 AM EDT) ~Hepatitis B Surface Antibody NONREACTIVE Nonreactive [facility] Comment:Nonreactive: < 8.00 mIU/mL Blood Venous blood specimen / Unknown 01/28/2025 10:59 AM EDT 01/28/2025 12:58 PM EDT us Chang Lucero MD LAB BLOOD ORDERABLES Final Resul t Performing Organization Address [facility] de Phone Number [facility] [address] [place] [phone] * (ABNORMAL) TSH W/Reflex to FT4 (12/10/2024 9:50 AM EDT) Pathologist [facility] TSH reflex Free T4 4.56(H) 0.32 - 4.0 uIU/mL [facility] Blood Venous blood specimen / Unknown 12/10/2024 9:50 AM EDT 12/10/2024 11:21 AM EDT us Chang Lucero MD LAB BLOOD ORDERABLES Final Resul t Performing Organization Address [facility] Co de Phone Number [facility] [address] [place] [phone] * (ABNORMAL) CBC auto differential (12/10/2024 9:50 AM EDT) White Blood Count 5.8 4.8 - 10.8 X10*3/uL [facility] Red Blood Count 4.44 4.20 - 5.50 X10*6/uL [facility] Hemoglobin 11.9(L) 12.0 - 16.0 g/dl [facility] Hematocrit 37.3 37.0 - 47.0 % [facility] Mean Corpuscular Volume 84.0 80.0 - 98.0 fL [facility] Mean Corpuscular Hemoglobin 26.8(L) 27.0 - 33.0 pg [facility] Mean Corpuscular HGB Conc 31.9 31.0 - 35.0 g/dl [facility] Red Cell Distribution Width 15.0 11.0 - 16.0 % [facility] Platelet Count 225 160 - 400 X10*3/uL [facility] Mean Platelet Volume 10.5 9.4 - 12.3 fL [facility] Neutrophils Percent Auto 64.5 45 - 73 % [facility] Imm Gran Pct Auto 0.5(H) 0.0 - 0.4 % [facility] Lymphocytes Percent Auto 25.7 20 - 40 % [facility] Monocytes Percent Auto 7.1 2 - 11 % [facility] Eosinophils Percent Auto 1.7 0 - 4 % [facility] Basophils Percent Auto 0.5 0 - 2 % [facility] NRBC Pct Auto 0.0 0.0 - 0.2 /100WBC [facility] Neutrophils Absolute Auto 3.7 2.0 - 8.3 x10*3/uL [facility] Imm Gran Abs Auto 0.03 0.00 - 0.03 X10*3/uL [facility] Lymphocytes Absolute Auto 1.5 1.2 - 4.9 X10*3/uL [facility] Monocytes Absolute Auto 0.4 0.1 - 1.2 X10*3/uL [facility] Eosinophils Absolute Auto 0.1 0.0 - 0.4 X10*3/uL [facility] Basophils Absolute Auto 0.0 0.0 - 0.2 X10*3/uL [facility] NRBC Abs Auto 0.000 0.0 - 0.012 X10*3/uL [facility] Blood Venous blood specimen / Unknown 12/10/2024 9:50 AM EDT 12/10/2024 11:21 AM EDT us Chang Lucero MD LAB BLOOD ORDERABLES Final Resul t Performing Organization Address [facility] Co de Phone Number [facility] [address] [place] [phone] * T4, Free (12/10/2024 9:50 AM EDT) Free T4 (Free Thyroxine) 0.88 0.71 - 1.85 ng/dL [facility] 12/10/2024 9:50 AM EDT 12/10/2024 11:21 AM EDT us Chang Lucero MD LAB BLOOD ORDERABLES Final Resul t Performing Organization Address [facility] Phone Number [facility] [address] [place] [phone] * Hemoglobin A1c (12/10/2024 9:50 AM EDT) Hemoglobin A1c 5.4 <6.0 % [facility] Comment:Hemoglobin A1C Refer ence Range Adults: 4.8 - 6.0 % Non diabetic: < 6.0 % Goal: < 7.0 %Additional Action Suggested: > 8.0 %Note: Hemoglobin A1c results are invalid for patients with abnormal amounts of HbF. Blood transfusions may impact the HbA1c concentration in the patient sample. Estimated Average Glucose 108 mg/dL [facility] Comment:eAG = Estimated ave rage glucose which is %A1C expressed asaverage glucose, using the formula of the U1B-JnlwnhtJagssex Glucose study (ADAG), Diabetes Care, Vol.31,#8,Apr. 2007 Blood Venous blood specimen / Unknown 12/10/2024 9:50 AM EDT 12/10/2024 11:21 AM EDT us Chang Lucero MD LAB BLOOD ORDERABLES Final Resul t Performing Organization Address [facility] de Phone Number [facility] [address] [place] [phone] * (ABNORMAL) Lipid Panel, Standard (12/10/2024 9:50 AM EDT) Triglycerides 185(H) <150 mg/dL [facility] Comment:Desirable Triglyceri de: less than 150 mg/dLBorderline High Triglyceride 150-199 mg/dLHigh Triglyceride: 200-499 mg/dLVery High Triglyceride: greater than or equal to 5OO mg/dL Cholesterol 186 <200 mg/dL [facility] Comment:Desirable Cholestero l: less than 200 mg/dLBorderline High Cholesterol: 200-239 mg/dLHigh Cholesterol: greater than 239 mg/dL LDL Cholesterol Calculated 99 <100 mg/dL [facility] Comment:Desirable LDL: less than 100 mg/dLNear Optimal/Above Optimal LDL: 110- 129 mg/dLBorderline High LDL: 130-159 mg/dLHigh LDL: 160-189 mg/dLVery High LDL: greater than or equal to 190 mg/dL HDL Cholesterol 50 >40 mg/dL [facility] Comment:Desirable HDL: great er than 40 mg/dL Note: This HDL assay may give artificially low results in patients with liver disease. Blood Venous blood specimen / Unknown 12/10/2024 9:50 AM EDT 12/10/2024 11:21 AM EDT us Chang Name LAB BLOOD ORDERABLES Final Resul t [facility] [address] [place] [phone] * (ABNORMAL) Comprehensive Metabolic Panel (12/10/2024 9:50 AM EDT) Sodium 139 135 - 145 mmol/L [facility] Potassium 3.8 3.3 - 5.1 mmol/L [facility] Chloride 107 96 - 108 mmol/L [facility] Carbon Dioxide 24 22 - 29 mmol/L [facility] Anion Gap 12 12 - 20 [facility] Urea Nitrogen (BUN) 14 9 - 16 mg/dL [facility] Creatinine, Serum 0.64 0.5 - 1.4 mg/dL [facility] Estimated Glomerular Filt Rate >60 [facility] Comment:Chronic Kidney Disea se: Estimated GFR < 60 mL/min/1.02c2Kzrxbe Kidney Disease: Estimated GFR < 15 mL/min/1.73m2 Glucose 89 60 - 115 mg/dL [facility] Calcium 9.0 8.4 - 10.2 mg/dL [facility] Bilirubin, Total 0.3 0.0 - 1.0 mg/dL [facility] Aspartate Amino Transferase 88(H) 5 - 31 U/L [facility] Alanine Aminotransferase 91(H) 0 - 31 U/L [facility] Total Protein 7.5 6.5 - 8.0 g/dL [facility] Albumin Level 3.8 3.5 - 5.0 g/dL [facility] Alkaline Phosphatase 141(H) 39 - 117 U/L [facility] Blood Venous blood specimen / Unknown 12/10/2024 9:50 AM EDT 12/10/2024 11:21 AM EDT us Chang Lucero MD LAB BLOOD ORDERABLES Final Resul t [facility] [address] [place] [phone] * HPV mRNA E6/E7 (09/25/2017 10:06 AM EST) HPV mRNA E6/E7 Not Detected NOT DETECTED [facility] Comment: This test was performed using the APTIMA(R) HPV Assay ([employer] This assay detects E6/E7 viral messenger RNA (mRNA) from 14 high-risk HPV types (16,18,31,33,35,39,45,51, 52,56,58,59,66,68). For additional information please refer to: http://education.in3Dgallery/faq/DBV653w2 (This link is being provided for informational/ educational purposes only.) Test Performed by Mitchell Stafford, [facility], [address] [place] [address] Papo Coburn M.D., Ph.D., Director of Laboratories , [facility] [id number] Please note: Effective 06/04/2016, HPV testing will be performed using [employer]'s APTIMA test which targets mRNA. Detecting mRNA instead of DNA, as in older methods, offers significant improvements in specificity. 09/25/2017 10:0 6 AM EST us Nadia Cordon CNM HISTORICAL/NON ORDERABLE LABS Final Result [facility] [address] from Last 3 Months or Most Recently Relevant to Health Maintenance Insurance [facility] Care Teams Bight Maker Relationship Specialty Start Date End Date Name, MD Chang [address] [place] [phone] PCP - General Internal Medicine 01/10/23
== END 2025-03-10 10:09 | disposition home or self-care (01) ==
LOC: HO.US 10:08
PROVIDERS: PCP Internal Medicine; Visit Provider Internal Medicine Geriatric Medicine
DX: R74.01 Elevation of levels of liver transaminase levels (principal); K75.81 Nonalcoholic steatohepatitis (NASH); E66.9 Obesity, unspecified
CPT/HCPCS: 76705; 76981

== ENCOUNTER → 2025-03-10 10:09 | Outpatient (BNV) | payer OTHER, SELFPAY | PROVIDERS: PCP Internal Medicine; Visit Provider Radiology Diagnostic Radiology | DX: R74.01 Elevation of levels of liver transaminase levels (principal) | CPT/HCPCS: 76705 ==